=== PATIENT | male | born 2000 | race Hispanic/Latino ===

== ENCOUNTER 2024-03-19 18:34 | Emergency (ER) | payer SELFPAY ==
[2024-03-19] MEDS ORDERED: IPRATROPIUM BROM 0.5MG/2.5ML ONE (19:16)
[2024-03-19] MEDS ORDERED: ALBUTEROL 2.5 MG/3 ML NEB SOL ONE (19:16)
[2024-03-19] MEDS ORDERED: METHYLPREDNISOLONE 125 MG INJ ONE (19:16)
[2024-03-19] MEDS ORDERED: DIPHENHYDRAMINE 50 MG/ML VIAL ONE (19:17)
[2024-03-19] MEDS ORDERED: FAMOTIDINE 20 MG/2 ML VIAL IV ONE (19:17)
[2024-03-19] MEDS ORDERED: NA CHLORIDE 0.9% 1,000 ML ONE (19:17)
--- NOTE | 2024-03-19 19:33 | RAD REPORT ---
EXAM: Chest Single View HISTORY: DYSPNEA COMPARISON: None. FINDINGS: LUNGS/PLEURA: The lungs are clear. No pleural effusions or pneumothorax. No pulmonary edema. MEDIASTINUM: The mediastinal silhouette is within normal limits. CARDIAC: The cardiac silhouette is within normal limits. UPPER ABDOMEN: No significant abnormality. BONES: No acute abnormality. LINES/TUBES/OTHER: N/A IMPRESSION: No evidence of acute cardiopulmonary disease.
--- NOTE | 2024-03-19 19:58 | ER ---
Nurse's Notes [facility] Name: Mehul Quinonez Age: 23 yrs Sex: Male : 2000 Arrival Date: 03/19/2024 Time: 18:34 Bed 4 Private MD: Diagnosis: Allergy, unspecified;Shortness of breath Presentation: 03/19 18:55 Chief complaint: Patient states: he has been having increased shortness of breath ap3 throughout the day with chest tightness. patient reports he took a Claritin at approx 1325 today. patient states he has multiple known dust allergens. Coronavirus screen: At this time, the client does not indicate any symptoms associated with coronavirus-19. Ebola Screen: No symptoms or risks identified at this time. Initial Sepsis Screen: Does the patient meet any 2 criteria? HR > 90 bpm. Does the patient have a suspected source of infection? No. Patient's initial sepsis screen is negative. Risk Assessment: Do you want to hurt yourself or someone else? Patient reports no desire to harm self or others. Onset of symptoms was March 19, 2024. 18:55 Method Of Arrival: Ambulatory ap3 18:55 Acuity: PHILLIP 3 ap3 Triage Assessment: 18:58 General: Appears uncomfortable, Behavior is calm, cooperative, appropriate for age. ap3 Pain: Complains of pain in chest Quality of pain is described as tightness Pain began gradually, this morning. Neuro: Level of Consciousness is awake, alert, obeys commands, Oriented to person, place, time, situation, Appropriate for age. Cardiovascular: Patient's skin is warm and dry. Respiratory: Reports shortness of breath cough that is Onset: The symptoms/episode began/occurred gradually, the patient has moderate shortness of breath. Historical: - Allergies: 18:57 dust; ap3 19:04 SHELLFISH; sb4 - Home Meds: 18:57 None [Active]; ap3 - PMHx: 18:57 None; ap3 - Immunization history:: Client reports receiving the 2nd dose of the Covid vaccine. - Infectious Disease History:: Denies. - Social history:: Smoking status: Patient denies any tobacco usage or history of. Screenin:59 Abuse screen: Denies threats or abuse. Nutritional screening: No deficits noted. ap3 Tuberculosis screening: No symptoms or risk factors identified. 20:42 [facility] ED Fall Risk Assessment (Adult) History of falling in the last 3 months, ha1 including since admission No falls in past 3 months (0 pts) Confusion or Disorientation No (0 pts) Intoxicated or Sedated No (0 pts) Impaired Gait No (0 pts) Mobility Assist Device Used No (0 pt) Altered Elimination Score/Fall Risk Level 3 or more points = High Risk Oriented to surroundings, Maintained a safe environment, Educated pt \T\ family on fall prevention, incl call for assistance when getting out of bed, Hourly rounding (assess needs \T\ fall precautionary measures) done. Assessment: 19:20 General: Appears uncomfortable, Behavior is calm, cooperative. Pain: Denies pain. ha1 Neuro: Level of Consciousness is awake, alert, obeys commands, Oriented to person, place, time, situation. Cardiovascular: Capillary refill < 3 seconds Patient's skin is warm and dry. Cardiovascular: Rhythm is regular. Respiratory: Reports shortness of breath at rest on exertion Airway is patent Respiratory effort is even, unlabored, Respiratory pattern is regular, symmetrical, Breath sounds with wheezes bilaterally. GI: Abdomen is round non-distended, obese. Derm: Skin is pink, warm \T\ dry. Musculoskeletal: Circulation, motion, and sensation intact. Range of motion: intact in all extremities. 20:00 Reassessment: Patient and/or family updated on plan of care and expected duration. Pain ha1 level reassessed. Patient is alert, oriented x 3, equal unlabored respirations, skin warm/dry/pink. Patient denies pain at this time. Patient states feeling better. Patient states symptoms have improved. 20:46 Reassessment: Patient and/or family updated on plan of care and expected duration. Pain ha1 level reassessed. Patient is alert, oriented x 3, equal unlabored respirations, skin warm/dry/pink. Patient denies pain at this time. Patient states feeling better. Patient states symptoms have improved. Vital Signs: 18:55 BP 148 / 94; Pulse 91; Resp 19; Temp 98.4(O); Pulse Ox 99% on R/A; Weight 117.93 kg; ap3 Height 5 ft. 9 in. ; 20:00 BP 143 / 91; Pulse 87; Resp 17 S; Pulse Ox 100% on R/A; ha1 20:40 BP 145 / 73; Pulse 75; Resp 17; Pulse Ox 100% on R/A; ha1 18:55 Body Mass Index 38.39 (117.93 kg, 175.26 cm) ap3 ED Course: 18:39 Patient arrived in ED. sj2 18:47 Radha Temple PA-C is [facility]. sb4 18:47 Jeremy Garcia MD is Attending Physician. sb4 18:57 Triage completed. ap3 18:59 Arm band placed on right wrist. ap3 19:00 Patient has correct armband on for positive identification. Placed in gown. Bed in low ha1 position. Call light in reach. Side rails up X 1. Adult w/ patient. 19:00 Provided Education on: plan of care . ha1 19:20 Inserted saline lock: 20 gauge in right antecubital area, using aseptic technique. ha1 Blood collected. Flushed with 10 mL NS. 19:28 Chest Single View XRAY In Process Unspecified. EDMS 19:28 Marisabel Perez RN is Primary Nurse. ha1 20:43 No provider procedures requiring assistance completed. IV discontinued, intact, ha1 bleeding controlled, No redness/swelling at site. Pressure dressing applied. Administered Medications: 19:20 Drug: Famotidine IVP 20 mg IVP once; dilute with 10 mL 0.9% NaCl; give over 2 minutes ha1 Route: IVP; Site: right antecubital; 20:00 Follow up: Response: No adverse reaction; Marked relief of symptoms ha1 19:22 Drug: MethylPrednisoLONE IVP 60 mg IVP once Route: IVP; Site: right antecubital; ha1 20:00 Follow up: Response: No adverse reaction; Marked relief of symptoms ha1 19:28 Drug: NS 0.9% IV 1000 ml IV at 1000 ml once; to be given as a bolus over 60 minutes ha1 Route: IV; Rate: 1000 ml; Site: right antecubital; 20:45 Follow up: Response: No adverse reaction; Marked relief of symptoms; IV Status: ha1 Completed infusion; IV Intake: 1000ml 19:28 Drug: diphenhydrAMINE IVP 25 mg IVP once Route: IVP; Site: right antecubital; ha1 20:00 Follow up: Response: No adverse reaction; Marked relief of symptoms ha1 19:29 Drug: DuoNeb Nebulize (3:1) (2.5 mg - 0.5 mg) 3 ml Nebulizer once Route: Nebulizer; ha1 20:00 Follow up: Response: No adverse reaction; Marked relief of symptoms ha1 Medication: 20:43 VIS not applicable for this client. ha1 Intake: 20:45 IV: 1000ml; Total: 1000ml. ha1 Outcome: 19:58 Discharge ordered by . sb4 20:43 Discharged to home ambulatory, with family, ha1 20:43 Condition: stable 20:43 Discharge instructions given to patient, family, Instructed on discharge instructions, follow up and referral plans. medication usage, Demonstrated understanding of instructions, follow-up care, 20:47 Patient left the ED. ha1 Signatures: Dispatcher [employer] EDRaquel Holguin RN RN ap3 Marisabel Perez RN RN ha1 Radha Temple, PA-C PA-C sb4 Hemanth Heller sj2 Corrections: (The following items were deleted from the chart) 20:45 20:00 Response: No adverse reaction; Marked relief of symptoms ha1 ha1
--- NOTE | 2024-03-19 19:58 | EDPHYS ---
Physician Documentation [facility] Name: Mehul Quinonez Age: 23 yrs Sex: Male : 2000 Arrival Date: 03/19/2024 Time: 18:34 Bed 4 Private MD: ED Physician Jeremy Garcia HPI: 03/19 19:39 This 23 yrs old Male presents to ER via Ambulatory with complaints of sb4 Shortness Of Breath. 19:39 Patient states that he was cleaning up earlier and believes he inhaled some dust. sb4 States that he is very sensitive to allergens like dust. States that he has felt tightness in his chest and shortness of breath ever since. States that he did take a Claritin a few hours ago but is still not feeling well. Historical: - Allergies: 18:57 dust; ap3 19:04 SHELLFISH; sb4 - Home Meds: 18:57 None [Active]; ap3 - PMHx: 18:57 None; ap3 - Immunization history:: Client reports receiving the 2nd dose of the Covid vaccine. - Infectious Disease History:: Denies. - Social history:: Smoking status: Patient denies any tobacco usage or history of. ROS: 19:39 Constitutional: Negative for fever, chills, and weight loss, sb4 19:39 Respiratory: Positive for shortness of breath, 19:39 All other systems are negative, Exam: 19:39 Constitutional: This is a well developed, well nourished patient who is awake, alert, sb4 and in no acute distress. Head/Face: Normocephalic, atraumatic. Eyes: Extra-ocular motions intact. Periorbital areas with no swelling, redness, or edema. ENT: Mucous membranes moist. Cardiovascular: Regular rate and rhythm with a normal S1 and S2. Respiratory: No increased work of breathing, no retractions or nasal flaring. Abdomen/GI: Soft, non-tender, no distension. Skin: Warm, dry with normal turgor. Normal color with no rashes, no lesions, and no evidence of cellulitis. 19:39 Respiratory: Breath sounds: are clear throughout, 19:40 ENT: Posterior pharynx: Airway: normal, patent, sb4 Vital Signs: 18:55 BP 148 / 94; Pulse 91; Resp 19; Temp 98.4(O); Pulse Ox 99% on R/A; Weight 117.93 kg; ap3 Height 5 ft. 9 in. ; 20:00 BP 143 / 91; Pulse 87; Resp 17 S; Pulse Ox 100% on R/A; ha1 20:40 BP 145 / 73; Pulse 75; Resp 17; Pulse Ox 100% on R/A; ha1 18:55 Body Mass Index 38.39 (117.93 kg, 175.26 cm) ap3 MDM: 18:47 Medical Screening Exam initiated sb4 19:56 Antibiotic administration: Not indicated, the patient does not have an appreciated sb4 infiltrate. Data reviewed: vital signs, nurses notes, and as a result, I will discharge patient. Counseling: I had a detailed discussion with the patient and/or guardian regarding the historical points, exam findings, and any diagnostic results supporting the discharge/admit diagnosis, lab results, radiology results, to return to the emergency department if symptoms worsen or persist or if there are any questions or concerns that arise at home. 03/19 18:52 Order name: Chest Single View XRAY; Complete Time: 19:35 sb4 03/19 18:52 Order name: IV Start; Complete Time: 19:28 sb4 Administered Medications: 19:20 Drug: Famotidine IVP 20 mg IVP once; dilute with 10 mL 0.9% NaCl; give over 2 minutes ha1 Route: IVP; Site: right antecubital; 20:00 Follow up: Response: No adverse reaction; Marked relief of symptoms ha1 19:22 Drug: MethylPrednisoLONE IVP 60 mg IVP once Route: IVP; Site: right antecubital; ha1 20:00 Follow up: Response: No adverse reaction; Marked relief of symptoms ha1 19:28 Drug: NS 0.9% IV 1000 ml IV at 1000 ml once; to be given as a bolus over 60 minutes ha1 Route: IV; Rate: 1000 ml; Site: right antecubital; 20:45 Follow up: Response: No adverse reaction; Marked relief of symptoms; IV Status: ha1 Completed infusion; IV Intake: 1000ml 19:28 Drug: diphenhydrAMINE IVP 25 mg IVP once Route: IVP; Site: right antecubital; ha1 20:00 Follow up: Response: No adverse reaction; Marked relief of symptoms ha1 19:29 Drug: DuoNeb Nebulize (3:1) (2.5 mg - 0.5 mg) 3 ml Nebulizer once Route: Nebulizer; ha1 20:00 Follow up: Response: No adverse reaction; Marked relief of symptoms ha1 Disposition Summary: 03/19/24 19:58 Discharge Ordered Problem: new sb4 Symptoms: have improved sb4 Condition: Stable sb4 Diagnosis - Allergy, unspecified sb4 - Shortness of breath sb4 Followup: sb4 - With: Emergency Department - When: As needed - Reason: Trouble breathing, Worsening of condition Discharge Instructions: - Discharge Summary Sheet sb4 - Allergies, Adult, [id number] sb4 Forms: - Patient Portal Instructions sb4 - Leadership Thank You Letter sb4 Addendum: 03/23/2024 07:26 Co-signature as Attending Physician, Jeremy Garcia MD I agree with the assessment and c langley plan of care. Signatures: Dispatcher [employer] Jeremy Boo MD MD cha Prokisch, Amanda RN RN [id number] Marisabel Perez RN RN ha1 Radha Temple PA-Mesha PA-C sb4
[2024-03-19 20:51] VITALS: TEMP 98.4
[2024-03-19 20:52] VITALS: O2SAT 100
[2024-03-19 20:53] VITALS: BP 145/73
== END 2024-03-19 20:47 | disposition home or self-care (01) ==
LOC: ER 18:34
DX: T78.40XA Allergy, unspecified, initial encounter (principal); R06.02 Shortness of breath; Z91.013 Allergy to seafood; Z91.09 Other allergy status, other than to drugs and biological substances
CPT/HCPCS: 71045; 96361; 96374; 96375; 99285; J1200; J2919; J7030; J7613; J7644

== ENCOUNTER 2024-05-14 11:15 | Emergency (ER) | payer SELFPAY ==
[2024-05-14] MEDS ORDERED: MAGNES/ALUMIN/SIMET 30ML UCUP ONE (11:40)
[2024-05-14] MEDS ORDERED: IPRATROPIUM BROM 0.5MG/2.5ML ONE (11:40)
[2024-05-14] MEDS ORDERED: ALBUTEROL 2.5 MG/3 ML NEB SOL ONE (11:40)
[2024-05-14] MEDS ORDERED: predniSONE 20 MG TAB ONE (11:41)
[2024-05-14] MEDS ORDERED: FAMOTIDINE 20 MG TAB ONE (11:41)
[2024-05-14] MEDS ORDERED: DIPHENHYDRAMINE 25 MG TAB/CAP ONE (11:41)
--- NOTE | 2024-05-14 12:40 | ER ---
Nurse's Notes [facility] Name: Mehul Quinonez Age: 23 yrs Sex: Male : 2000 Arrival Date: 05/14/2024 Time: 11:15 Bed 7 Private MD: Diagnosis: Allergic reaction Presentation: 05/14 11:31 Chief complaint: Patient states: Patient states he was exposed to shellfish last night le1 around 2330 and sob/chest tightness symptoms progressed overnight. Around 0900 patient took two benadryls he believed to be 150 mg each. Patient states he did not come last night because he did not believe it was an emergency. Patient does not have an epi pen at home but does have allergies to shellfish. Coronavirus screen: Vaccine status: Patient reports receiving the 2nd dose of the covid vaccine. Client denies travel out of the [place] in the last 14 days. At this time, the client does not indicate any symptoms associated with coronavirus-19. Ebola Screen: Patient negative for fever greater than or equal to 101.5 degrees Fahrenheit, and additional compatible Ebola Virus Disease symptoms Patient denies exposure to infectious person. Patient denies travel to an Ebola-affected area in the 21 days before illness onset. No symptoms or risks identified at this time. Onset: The symptoms/episode began/occurred gradually, yesterday, last night. Anaphylaxis evaluation, chest pain sob. Initial Sepsis Screen: Does the patient meet any 2 criteria? HR > 90 bpm. No. Patient's initial sepsis screen is negative. Does the patient have a suspected source of infection? No. Patient's initial sepsis screen is negative. Risk Assessment: Do you want to hurt yourself or someone else? Patient reports no desire to harm self or others. Onset of symptoms was May 13, 2024. 11:31 Method Of Arrival: Ambulatory le1 11:31 Acuity: PHILLIP 2 le1 Triage Assessment: 11:35 General: Appears distressed, uncomfortable, Behavior is cooperative, appropriate for le1 age, anxious. Pain: Complains of pain in chest Pain currently is 4 out of 10 on a pain scale. Quality of pain is described as squeezing. EENT: No deficits noted. Neuro: No deficits noted. Cardiovascular: No deficits noted. Respiratory: Reports shortness of breath at rest Respiratory effort is even, labored, Respiratory pattern is regular, symmetrical. GI: No deficits noted. : No deficits noted. Derm: No deficits noted. Musculoskeletal: No deficits noted. Historical: - Allergies: 11:35 DUST; le1 11:35 SHELLFISH; le1 - Immunization history:: Adult Immunizations up to date, Client reports receiving the 2nd dose of the Covid vaccine. - Infectious Disease History:: Denies. - Social history:: Smoking status: Patient denies any tobacco usage or history of. - Family history:: not pertinent. Screenin:37 [facility] ED Fall Risk Assessment (Adult) History of falling in the last 3 months, le1 including since admission No falls in past 3 months (0 pts) Confusion or Disorientation No (0 pts) Intoxicated or Sedated No (0 pts) Impaired Gait No (0 pts) Mobility Assist Device Used No (0 pt) Altered Elimination No (0 pt) Score/Fall Risk Level 0 - 2 = Low Risk Oriented to surroundings, Maintained a safe environment, Educated pt \T\ family on fall prevention, incl call for assistance when getting out of bed, Assessed \T\ reinforced patient's understanding of fall precautions, Hourly rounding (assess needs \T\ fall precautionary measures) done, Used ambulatory aids as needed (educated on \T\ assisted with). Abuse screen: Denies threats or abuse. Denies injuries from another. Nutritional screening: No deficits noted. Tuberculosis screening: No symptoms or risk factors identified. Assessment: 11:37 Reassessment: triage assessment. le1 12:00 Respiratory: Airway is patent Breath sounds are clear bilaterally. le1 Vital Signs: 11:31 BP 122 / 97; Pulse 98; Resp 20; Temp 98.8(O); Pulse Ox 98% on R/A; Pain 4/10; le1 12:27 BP 138 / 93; Pulse 89; Resp 21; Pulse Ox 100% on R/A; Pain 2/10; le1 12:39 Temp 98.8(O); le1 11:31 Pain Scale: Adult le1 12:27 Pain Scale: Adult le1 ED Course: 11:19 Patient arrived in ED. al6 11:19 Pablo Bay MD is Attending Physician. rt 11:25 Esau Damon RN is Primary Nurse. le1 11:35 Triage completed. le1 11:36 Arm band placed on right wrist. le1 11:37 Patient has correct armband on for positive identification. Bed in low position. Call le1 light in reach. Side rails up X2. Adult w/ patient. Provided Education on: Informed to use call light if needed.. 12:00 No provider procedures requiring assistance completed. Patient did not have IV access le1 during this emergency room visit. Administered Medications: 11:51 Drug: predniSONE PO 40 mg PO once Route: PO; le1 12:32 Follow up: Response: No adverse reaction le1 11:51 Drug: diphenhydrAMINE PO 25 mg PO once Route: PO; le1 12:33 Follow up: Response: No adverse reaction le1 11:51 Drug: Famotidine PO 20 mg PO once Route: PO; le1 12:33 Follow up: Response: No adverse reaction le1 11:51 Drug: Albuterol Inhalation 2.5 mg Inhalation once Route: Inhalation; le1 12:33 Follow up: Response: No adverse reaction; Wheezing diminished le1 11:51 Drug: Ipratropium Inhalation Aerosol 0.5 mg Inhalation once Route: Inhalation; le1 12:33 Follow up: Response: No adverse reaction; Wheezing diminished le1 11:51 Drug: GI Cocktail without - (Maalox PO 30 ml, Lidocaine Mucous Membrane 2 % 15 le1 ml) PO once Route: PO; 12:33 Follow up: Response: No adverse reaction le1 Medication: 12:40 VIS not applicable for this client. le1 Outcome: 12:40 Discharge ordered by . rt 12:40 Discharged to home ambulatory, le1 12:40 Condition: good 12:40 Discharge instructions given to patient, Instructed on discharge instructions, follow le1 up and referral plans. Demonstrated understanding of instructions, follow-up care, medications, Prescriptions given X 2, 12:47 Patient left the ED. le1 Signatures: Pablo Bay MD MD rt Esau Damon RN RN le1 Anais Lion
--- NOTE | 2024-05-14 12:40 | EDPHYS ---
Physician Documentation [facility] Name: Mehul Quinonez Age: 23 yrs Sex: Male : 2000 Arrival Date: 05/14/2024 Time: 11:15 Bed 7 Private MD: ED Physician Pablo Bay HPI: 05/14 16:02 This 23 yrs old Male presents to ER via Ambulatory with complaints of Allergic rt Reaction. 16:02 Patient presents to the ED with reported dyspnea due to allergic reaction. Patient rt states that he smelled seafood last night causing this to set off. Tried Benadryl with no relief. Denies other acute complaints at this time, symptoms are moderate severity, no other aggravating or alleviating factors.. Historical: - Allergies: 11:35 DUST; le1 11:35 SHELLFISH; le1 - Immunization history:: Adult Immunizations up to date, Client reports receiving the 2nd dose of the Covid vaccine. - Infectious Disease History:: Denies. - Social history:: Smoking status: Patient denies any tobacco usage or history of. - Family history:: not pertinent. ROS: 16:02 Constitutional: Negative for fever, chills, and weight loss, Cardiovascular: Negative rt for chest pain, palpitations, and edema, Abdomen/GI: Negative for abdominal pain, nausea, vomiting, diarrhea, and constipation, MS/Extremity: Negative for injury and deformity, Skin: Negative for injury, rash, and discoloration, Neuro: Negative for headache, weakness, numbness, tingling, and seizure, 16:02 Respiratory: Positive for shortness of breath, Negative for cough, Exam: 16:02 Constitutional: This is a well developed, well nourished patient who is awake, alert, rt and in no acute distress. Head/Face: Normocephalic, atraumatic. Chest/axilla: Normal chest wall appearance and motion. Nontender with no deformity. No lesions are appreciated. Cardiovascular: Regular rate and rhythm with a normal S1 and S2. No gallops, murmurs, or rubs. Normal PMI, no JVD. No pulse deficits. Respiratory: Lungs have equal breath sounds bilaterally, clear to auscultation and percussion. No rales, rhonchi or wheezes noted. No increased work of breathing, no retractions or nasal flaring. Abdomen/GI: Soft, non-tender, with normal bowel sounds. No distension or tympany. No guarding or rebound. No evidence of tenderness throughout. Skin: Warm, dry with normal turgor. Normal color with no rashes, no lesions, and no evidence of cellulitis. MS/ Extremity: Pulses equal, no cyanosis. Neurovascular intact. Full, normal range of motion. Neuro: Awake and alert, GCS 15, oriented to person, place, time, and situation. Cranial nerves II-XII grossly intact. Motor strength 5/5 in all extremities. Sensory grossly intact. Cerebellar exam normal. Normal gait. 16:02 ENT: No oropharyngeal swelling, edema. Vital Signs: 11:31 BP 122 / 97; Pulse 98; Resp 20; Temp 98.8(O); Pulse Ox 98% on R/A; Pain 4/10; le1 12:27 BP 138 / 93; Pulse 89; Resp 21; Pulse Ox 100% on R/A; Pain 2/10; le1 12:39 Temp 98.8(O); le1 11:31 Pain Scale: Adult le1 12:27 Pain Scale: Adult le1 MDM: 11:29 Medical Screening Exam initiated rt 16:02 Differential diagnosis: Allergic reaction, bronchospasm, anaphylaxis. Data reviewed: rt vital signs, nurses notes. I considered the following discharge prescriptions or medication management in the emergency department Medications were administered in the Emergency Department. See MAR Do not suspect anaphylaxis clinically, epinephrine not indicated. Test considered but Not performed: Other Details Symptoms most likely due to allergic reaction, has complete resolution of symptoms with treatment in the ED, clear breath sounds, do not believe that he requires any diagnostic studies at this time.. Counseling: I had a detailed discussion with the patient and/or guardian regarding the historical points, exam findings, and any diagnostic results supporting the discharge/admit diagnosis, the need for outpatient follow up, to return to the emergency department if symptoms worsen or persist or if there are any questions or concerns that arise at home. Response to treatment: the patient's symptoms have resolved after treatment. Administered Medications: 11:51 Drug: predniSONE PO 40 mg PO once Route: PO; le1 12:32 Follow up: Response: No adverse reaction le1 11:51 Drug: diphenhydrAMINE PO 25 mg PO once Route: PO; le1 12:33 Follow up: Response: No adverse reaction le1 11:51 Drug: Famotidine PO 20 mg PO once Route: PO; le1 12:33 Follow up: Response: No adverse reaction le1 11:51 Drug: Albuterol Inhalation 2.5 mg Inhalation once Route: Inhalation; le1 12:33 Follow up: Response: No adverse reaction; Wheezing diminished le1 11:51 Drug: Ipratropium Inhalation Aerosol 0.5 mg Inhalation once Route: Inhalation; le1 12:33 Follow up: Response: No adverse reaction; Wheezing diminished le1 11:51 Drug: GI Cocktail without - (Maalox PO 30 ml, Lidocaine Mucous Membrane 2 % 15 le1 ml) PO once Route: PO; 12:33 Follow up: Response: No adverse reaction le1 Disposition Summary: 05/14/24 12:40 Discharge Ordered Notes: Location: Home rt Problem: an acute exacerbation rt Symptoms: have improved rt Condition: Stable rt Diagnosis - Allergic reaction rt Followup: rt - With: Private Physician - When: 2 - 3 days - Reason: Discharge Instructions: - Discharge Summary Sheet rt - Allergies, Adult rt Forms: - Medication Reconciliation Form rt - Antibiotic Education rt - Prescription Opioid Use rt - Patient Portal Instructions rt - Leadership Thank You Letter rt Prescriptions: - EpiPen 0.3 mg/0.3 mL Injection Auto-Injector - administer 0.3 milliliter INTRAMUSCULAR route once; 2 Each; Refills: 0, Product rt Selection Permitted - Prednisone 20 mg Oral tablet - take 2 tablets ORAL route once daily; 8 tablet; Refills: 0, Product Selection rt Permitted Signatures: Pablo Bay MD MD rt Esau Damon RN RN le1
[2024-05-14 12:52] VITALS: TEMP 98.8
[2024-05-14 12:53] VITALS: BP 138/93; O2SAT 100
== END 2024-05-14 12:47 | disposition home or self-care (01) ==
LOC: ER 11:15
DX: R06.00 Dyspnea, unspecified (principal); Z91.013 Allergy to seafood
CPT/HCPCS: 99284; J7512; J7613; J7644

== ENCOUNTER 2024-12-26 07:58 | Emergency (ER) | payer SELFPAY ==
[2024-12-26] MEDS ORDERED: NA CHLORIDE 0.9% 1,000 ML ONE (08:26)
[2024-12-26] MEDS ORDERED: FAMOTIDINE 20 MG/2 ML VIAL IV ONE (08:26)
[2024-12-26] MEDS ORDERED: ONDANSETRON 4 MG/2 ML VIAL ONE (08:26)
[2024-12-26 08:48] LABS: Absolute Lymphocytes (CBC) 1.9 K/uL (0.7-4.9); Hematocrit 46.3 % (39.6-49.0); Hemoglobin 15.6 g/dL (13.6-17.9); MCH 28.5 pg (27.0-35.0); MCHC 33.7 g/dL (32.0-36.0); MCV 84.5 fL (80-100); MPV 9.0 fL (7.6-11.3); Nucleated RBC Absolute Count 0.0 (0-0); Nucleated Red Blood Cells % 0.2 % (0-0); RBC Red Blood Cell Count 5.48 M/uL (4.33-5.43); White Blood Count 7.50 thou/uL (4.3-10.9)
[2024-12-26 09:04] LABS: ALT/SGPT 80.0 U/L (16-61); AST/SGOT 20.0 U/L (15-37); Albumin 3.7 g/dL (3.4-5.0); Albumin/Globulin Ratio 0.9 (1.1-1.8); Alkaline Phosphatase 101.0 U/L (45-117); Anion Gap 10.0 mEq/L (5.0-15.0); BUN Blood Urea Nitrogen 11.0 mg/dL (7-18); Globulin 4.1 g/dL (2.3-3.5); Glucose Level 123.0 mg/dL (74-106); Lipase 20.0 U/L (13-75); Potassium 4.0 mEq/L (3.5-5.1)
--- NOTE | 2024-12-26 10:19 | RAD REPORT ---
EXAMINATION: CT ABDOMEN AND PELVIS WITHOUT CONTRAST CLINICAL INDICATION: Abdominal pain TECHNIQUE: CT abdomen and pelvis was performed, as per department protocol. IV contrast and oral was not administered.Axial, sagittal and coronal reconstructions were obtained. One or more of the following dose reduction techniques were used: Automated exposure control, adjustment of the mA and/o r kV according to the patient size, and/or iterative reconstruction. Unless otherwise specified, incidental findings do not require dedicated imaging follow-up. [id number]. COMPARISON: No prior exam. FINDINGS: The lack of intravenous and oral contrast limits evaluation of solid organs, vessels and bowel. Fatty liver Mild gastric distention The spleen, pancreas, adrenals and kidneys grossly normal No evidence of diverticulitis Normal appendix Several small sclerotic foci right ilium and right pelvis. IMPRESSION: Mild gastric distention. Fatty liver Several small sclerotic foci right ilium and right pelvis nonspecific. Follow-up x-ray of the pelvis including the proximal right femur recommended in 3 months.
--- NOTE | 2024-12-26 10:27 | ER ---
Nurse's Notes [facility] Name: Mehul Simon Age: 24 yrs Sex: Male : 2000 Arrival Date: 12/26/2024 Time: 07:58 Bed 20 Private MD: Diagnosis: Viral gastroenteritis;External hemorrhoids Presentation: 12/26 08:12 Chief complaint: Diarrhea x 2 days, N/V started today. Coronavirus screen: At this hb time, the client does not indicate any symptoms associated with coronavirus-19. Ebola Screen: No symptoms or risks identified at this time. Initial Sepsis Screen: Does the patient meet any 2 criteria? No. Patient's initial sepsis screen is negative. Does the patient have a suspected source of infection? No. Patient's initial sepsis screen is negative. Risk Assessment: Do you want to hurt yourself or someone else? Patient reports no desire to harm self or others. Onset of symptoms was December 25, 2024. 08:12 Method Of Arrival: Ambulatory 08:12 Acuity: PHILLIP 3 hb Triage Assessment: 08:37 General: Appears uncomfortable, Behavior is cooperative, appropriate for age, anxious. ab3 Pain: Complains of pain in abdomen Pain currently is 8 out of 10 on a pain scale. Neuro: No deficits noted. Cardiovascular: No deficits noted. Respiratory: No deficits noted. GI: Abdomen is round Rectal exam: Deferred to physician Pt states h/o hemorrhoids with bright red bleeding after several episodes diarrhea this morning. Bowel sounds present X 4 quads. Abd is soft Abdomen is tender to palpation in epigastric area Reports bloating, cramping, diarrhea, gaseousness. Historical: - Allergies: 08:13 DUST; hb 08:13 SHELLFISH; hb - Home Meds: 08:13 None [Active]; hb - PMHx: 08:13 None; hb - PSHx: 08:13 Tonsillectomy; hb - Immunization history:: Adult Immunizations up to date. - Infectious Disease History:: Denies. - Social history:: Smoking status: Patient denies any tobacco usage or history of. Screenin:37 [facility] ED Fall Risk Assessment (Adult) History of falling in the last 3 months, ab3 including since admission No falls in past 3 months (0 pts) Confusion or Disorientation No (0 pts) Intoxicated or Sedated No (0 pts) Impaired Gait No (0 pts) Mobility Assist Device Used No (0 pt) Altered Elimination No (0 pt) Score/Fall Risk Level 0 - 2 = Low Risk Oriented to surroundings, Maintained a safe environment, Educated pt \T\ family on fall prevention, incl call for assistance when getting out of bed, Assessed \T\ reinforced patient's understanding of fall precautions, Provided non-skid footwear, Hourly rounding (assess needs \T\ fall precautionary measures) done, Used ambulatory aids as needed (educated on \T\ assisted with). Abuse screen: Denies threats or abuse. Denies injuries from another. Nutritional screening: No deficits noted. Tuberculosis screening: No symptoms or risk factors identified. Vital Signs: 08:12 BP 138 / 107; Pulse 107; Resp 18; Temp 99(O); Pulse Ox 98% on R/A; Weight 122.02 kg; hb Height 5 ft. 9 in. ; Pain 2/10; 09:00 BP 164 / 102; Pulse 98; Resp 19; Pulse Ox 97% on R/A; ab3 09:26 BP 146 / 93; Pulse 96; Resp 20; Pulse Ox 99% on R/A; Pain 5/10; ab3 09:27 BP 149 / 63; Pulse 96; Resp 19; Pulse Ox 99% on R/A; Pain 5/10; ab3 10:00 BP 147 / 69; Pulse 90; Resp 18; Pulse Ox 97% on R/A; ab3 11:00 BP 149 / 76; Pulse 74; Resp 19; Pulse Ox 98% on R/A; ab3 11:30 BP 142 / 74; Pulse 90; Resp 18; Pulse Ox 99% on R/A; Pain 2/10; ab3 11:43 BP 146 / 79; Pulse 90; Resp 18; Temp 97.6(O); Pulse Ox 99% on R/A; Pain 2/10; ab3 08:12 Body Mass Index 39.72 (122.02 kg, 175.26 cm) hb 08:12 Pain Scale: Adult hb 09:26 Pain Scale: Adult ab3 09:27 Pain Scale: Adult ab3 11:30 Pain Scale: Adult ab3 11:43 Pain Scale: Adult ab3 09:27 pain in epigastrum resolved; rectal discomfort continues after BM. Maryan Temple PA-C ab3 notified. ED Course: 08:00 Patient arrived in ED. mr 08:02 [facility] sb4 08:02 Francis Yang MD is Attending Physician. sb4 08:13 Triage completed. hb 08:14 Arm band placed on. hb 08:23 Mora Hu, RN is Primary Nurse. ab3 08:30 No provider procedures requiring assistance completed. Inserted saline lock: 20 gauge ab3 in right antecubital area, using aseptic technique. Blood collected. Flushed with 10 mL NS 08:35 CBC with Diff Sent. ab3 08:35 CMP Sent. ab3 08:35 Lipase Sent. ab3 08:40 Patient has correct armband on for positive identification. Bed in low position. Call ab3 light in reach. Side rails up X 1. Provided Education on: Orientation to room and call light-use. 09:09 CT Abd/Pelvis - Without Contrast In Process Unspecified. EDMS 11:48 intact, bleeding controlled, No redness/swelling at site. Pressure dressing applied. ab3 Administered Medications: 08:31 Drug: NS 0.9% IV 1000 ml IV at 1 bolus Per protocol; to be given as a bolus over 60 ab3 minutes Route: IV; Rate: 1 bolus; Infused Over: 1 hrs; Site: right antecubital; Delivery: Primary tubing; 09:20 Follow up: IV Status: Infusion continued; IV converted to saline lock; IV Intake: [id number] 08:35 Drug: Famotidine IVP 20 mg IVP once; dilute with 10 mL 0.9% NaCl; give over 2 minutes ab3 Route: IVP; Infused Over: 2 mins; Site: right antecubital; 09:26 Follow up: BP 146 / 93; Pulse 96 bpm; Resp 20 bpm; Pulse Ox 99% RA; Pain 5/10 Adult; ab3 Response: No adverse reaction; Pain is decreased; Other; Pain to abdomen decrease, but pt reports pain to rectum remains since he just reused to bathroom with bright red bleeding to toilet paper. 08:36 Drug: Ondansetron IVP 4 mg IVP once; over 2 minutes Route: IVP; Infused Over: 2 mins; ab3 Site: right antecubital; 09:27 Follow up: Response: No adverse reaction; Nausea is decreased ab3 Medication: 08:41 VIS not applicable for this client. ab3 Intake: 09:20 IV: 1000ml; Total: 1000ml. ab3 Outcome: 10:26 Discharge ordered by . sb4 11:49 Discharged to home ambulatory, ab3 11:49 Condition: good 11:49 Discharge instructions given to patient, Instructed on discharge instructions, follow up and referral plans. safety practices, Prescriptions given X 2, 11:50 Patient left the ED. ab3 Signatures: Dispatcher [employer] EDNE Michelle Baca, Reg Reg mr Lyndsey Saucedo, RN RN Radha Cavanaugh, PA-C PA-C sb4 Mora Hu, RN RN ab3 Corrections: (The following items were deleted from the chart) 08:14 08:13 PSHx: None; hb hb
--- NOTE | 2024-12-26 10:27 | EDPHYS ---
Physician Documentation [facility] Name: Mehul Simon Age: 24 yrs Sex: Male : 2000 Arrival Date: 12/26/2024 Time: 07:58 Bed 20 Private MD: ED Physician Francis Yang HPI: 12/26 08:11 This 24 yrs old Male presents to ER via Unassigned with complaints of sb4 Abdominal Pain, Vomiting/Diarrhea. 08:11 patient reports abdominal pain that began yesterday with associated belching, nausea, sb4 vomiting, and diarrhea. states he is now having blood in his stool. denies any fever or chills. thinks he may have eaten something bad but isn't sure. denies any medical history . Historical: - Allergies: 08:13 DUST; hb 08:13 SHELLFISH; hb - Home Meds: 08:13 None [Active]; hb - PMHx: 08:13 None; hb - PSHx: 08:13 Tonsillectomy; hb - Immunization history:: Adult Immunizations up to date. - Infectious Disease History:: Denies. - Social history:: Smoking status: Patient denies any tobacco usage or history of. ROS: 08:11 Constitutional: Negative for fever, chills, and weight loss, sb4 08:11 Abdomen/GI: Positive for abdominal pain, nausea, vomiting, and diarrhea, rectal bleeding, 08:11 All other systems are negative, Exam: 08:11 Head/Face: Normocephalic, atraumatic. Eyes: Extra-ocular motions intact. Periorbital sb4 areas with no swelling, redness, or edema. Cardiovascular: Regular rate and rhythm with a normal S1 and S2. Respiratory: No increased work of breathing, no retractions or nasal flaring. Abdomen/GI: Soft, non-tender, no distension. Skin: Warm, dry with normal turgor. Normal color with no rashes, no lesions, and no evidence of cellulitis. 08:11 Constitutional: The patient appears in no acute distress, alert, awake, obese, 08:11 ENT: Mouth: Oral mucosa: dry, Vital Signs: 08:12 BP 138 / 107; Pulse 107; Resp 18; Temp 99(O); Pulse Ox 98% on R/A; Weight 122.02 kg; hb Height 5 ft. 9 in. ; Pain 2/10; 09:00 BP 164 / 102; Pulse 98; Resp 19; Pulse Ox 97% on R/A; ab3 09:26 BP 146 / 93; Pulse 96; Resp 20; Pulse Ox 99% on R/A; Pain 5/10; ab3 09:27 BP 149 / 63; Pulse 96; Resp 19; Pulse Ox 99% on R/A; Pain 5/10; ab3 10:00 BP 147 / 69; Pulse 90; Resp 18; Pulse Ox 97% on R/A; ab3 11:00 BP 149 / 76; Pulse 74; Resp 19; Pulse Ox 98% on R/A; ab3 11:30 BP 142 / 74; Pulse 90; Resp 18; Pulse Ox 99% on R/A; Pain 2/10; ab3 11:43 BP 146 / 79; Pulse 90; Resp 18; Temp 97.6(O); Pulse Ox 99% on R/A; Pain 210; ab3 08:12 Body Mass Index 39.72 (122.02 kg, 175.26 cm) hb 08:12 Pain Scale: Adult hb 09:26 Pain Scale: Adult ab3 09:27 Pain Scale: Adult ab3 11:30 Pain Scale: Adult ab3 11:43 Pain Scale: Adult ab3 09:27 pain in epigastrum resolved; rectal discomfort continues after BM. Maryan Temple PA-C ab3 notified. MDM: 08:03 Medical Screening Exam initiated sb4 08:11 Differential diagnosis: diverticulitis, GI Bleed, non-specific abd pain, Peptic Ulcer sb4 Disease, colitis, gastroenteritis. 10:28 Data reviewed: vital signs, nurses notes, lab test result(s), radiologic studies, and sb4 as a result, I will discharge patient. Counseling: I had a detailed discussion with the patient and/or guardian regarding the historical points, exam findings, and any diagnostic results supporting the discharge/admit diagnosis, lab results, radiology results, the need for outpatient follow up, for definitive care, to return to the emergency department if symptoms worsen or persist or if there are any questions or concerns that arise at home. Special discussion: Based on the patient's Hx, exam, and Dx evaluation, there is no indication for emergent surgery or inpatient Tx. It is understood by the patient/guardian that if the Sx's persist or worsen they need to return immediately for re-evaluation. I discussed with the patient the need to follow-up with the PCP/specialist for the noted incidental finding on X-ray/CT scanning. 10:50 Consideration of Admission/Observation Escalation of care including sb4 admission/observation considered. Care significantly affected by the following chronic conditions: Obesity. 12/26 08:11 Order name: CBC with Diff; Complete Time: 09:00 sb4 12/26 08:11 Order name: CMP; Complete Time: 09:05 sb4 12/26 08:11 Order name: Lipase; Complete Time: 09:05 sb4 12/26 08:11 Order name: CT Abd/Pelvis - Without Contrast; Complete Time: 10:20 sb4 12/26 08:11 Order name: IV Saline Lock; Complete Time: 08:35 sb4 12/26 08:11 Order name: Labs collected and sent; Complete Time: 08:42 sb4 Administered Medications: 08:31 Drug: NS 0.9% IV 1000 ml IV at 1 bolus Per protocol; to be given as a bolus over 60 ab3 minutes Route: IV; Rate: 1 bolus; Infused Over: 1 hrs; Site: right antecubital; Delivery: Primary tubing; 09:20 Follow up: IV Status: Infusion continued; IV converted to saline lock; IV Intake: [id number] 08:35 Drug: Famotidine IVP 20 mg IVP once; dilute with 10 mL 0.9% NaCl; give over 2 minutes ab3 Route: IVP; Infused Over: 2 mins; Site: right antecubital; 09:26 Follow up: BP 146 / 93; Pulse 96 bpm; Resp 20 bpm; Pulse Ox 99% RA; Pain 5/10 Adult; ab3 Response: No adverse reaction; Pain is decreased; Other; Pain to abdomen decrease, but pt reports pain to rectum remains since he just reused to bathroom with bright red bleeding to toilet paper. 08:36 Drug: Ondansetron IVP 4 mg IVP once; over 2 minutes Route: IVP; Infused Over: 2 mins; ab3 Site: right antecubital; 09:27 Follow up: Response: No adverse reaction; Nausea is decreased ab3 Disposition: 18:13 Co-signature as Attending Physician, Francis Yang MD I reviewed the patient's care rn provided by the Advanced Practice Provider and agree with the diagnosis and treatment plan. Disposition Summary: 12/26/24 10:26 Discharge Ordered Notes: Location: Home sb4 Problem: new sb4 Symptoms: have improved sb4 Condition: Stable sb4 Diagnosis - Viral gastroenteritis sb4 - External hemorrhoids sb4 Followup: sb4 - With: Private Physician - When: As needed - Reason: Recheck today's complaints, Re-evaluation by your physician Discharge Instructions: - Discharge Summary Sheet sb4 - Food Choices to Help Relieve Diarrhea, Adult sb4 - Viral Gastroenteritis, Adult, [id number] sb4 - Hemorrhoids, [id number] sb4 Forms: - Patient Portal Instructions sb4 - Leadership Thank You Letter sb4 Prescriptions: - Imodium A-D 2 mg Oral tablet - take 1 tablet ORAL route 4 times per day as needed for loose stool; 12 tablet; sb4 Refills: 0, Product Selection Permitted - Preparation H 0.25-14-74.9 % Rectal ointment - apply 1 application RECTAL route 3 to 4 times per day as needed for rectal sb4 discomfort; 1 Applicator; Refills: 0, Product Selection Permitted Signatures: Dispatcher [employer] EDOR Francis Yang MD MD rn Baxter, Heather, RN RN Radha Cavanaugh PA-C PAManuel sb4 Mora Hu, RN RN ab3 Corrections: (The following items were deleted from the chart) 08:11 08:11 Abdomen Pelvis Wo Con+CT.RAD.BRZ ordered. EDOR EDOR 08:14 08:13 PSHx: None; hb hb
[2024-12-26 12:27] VITALS: O2SAT 99
[2024-12-26 12:28] VITALS: BP 146/79; TEMP 97.6
== END 2024-12-26 11:50 | disposition home or self-care (01) ==
LOC: ER 07:58
DX: A08.4 Viral intestinal infection, unspecified (principal); R10.9 Unspecified abdominal pain; R11.10 Vomiting, unspecified; R19.7 Diarrhea, unspecified; K64.4 Residual hemorrhoidal skin tags
CPT/HCPCS: 36415; 74176; 80053; 83690; 85025; 96361; 96374; 96375; 99284; J2405; J7030